=== PATIENT | male | born 1960 | race African-American/Black ===

== ENCOUNTER 2018-12-11 05:12 | Day surgery (SDC) | payer BC, OTHER ==
[2018-12-10 11:56] VITALS: BMI 24.9
--- NOTE | 2018-12-11 09:28 | HP ---
[facility] - Past Medical History Allergies/Adverse Reactions: Allergies Allergy/AdvReac Type Severity Reaction Status Date / Time CHLORQUINE Allergy Severe SEVERE Uncoded 12/10/18 11:58 ITCHING - Current Medications Current Medications: Home Medications Medication Instructions Recorded Amlodipine Besylate 5 mg PO DAILY 12/10/18 Hydrochlorothiazide [Hctz -] 12.5 mg PO DAILY 12/10/18 Ranitidine HCl [Zantac] 150 mg PO BID 12/10/18
--- NOTE | 2018-12-11 09:33 | HP ---
History & Physical Update - Physical Physical: No Change (Ventral hernia extending miway between the xiphoid and umbilicus , to below the umbilicus, with incarcerated ? fat / omentum.) - Assessment Assessment: No Change (Has ventral hernia in the midline extending aboce the umbilicus, down below the umbilicua, and would need about a 10cm. diameter mesh. Will do laparoscopic repair , for a wider placement of mesh. Patient was explained.) - Plan Plan: No Change (Plan : repair of ventral hernia with mesh. Consent obtained. Procedure explained, with risks, benefits and complications, including , seroma)
[2018-12-11] MEDS ORDERED: BUPIVACAINE HCL/PF 0.25% (2.5MG/ML) 10 ML VIAL ONE (10:33)
[2018-12-11] MEDS ORDERED: DEXAMETHASONE SOD PHOSPHATE/PF 10 MG/ML SDV ONE (10:33)
[2018-12-11] MEDS ORDERED: PROMETHAZINE HCL 25 MG/1 ML VIAL IVPB PRN (11:01)
[2018-12-11] MEDS ORDERED: oxyCODONE HCL 5 MG TABLET PO PRN (11:01)
[2018-12-11] MEDS ORDERED: ONDANSETRON 4 MG/2 ML VIAL IVPUSH PRN (11:01)
[2018-12-11] MEDS ORDERED: ACETAMINOPHEN 1000 MG/100 ML VIAL (NON FORMULARY) IVPB ONE (11:02)
[2018-12-11] MEDS ORDERED: MIDAZOLAM HCL 2 MG/2 ML SINGLE DOSE VIAL ONE ×2 (11:02)
[2018-12-11] MEDS ORDERED: BUPIVACAINE HCL/PF 0.5% (5MG/ML) 10 ML VIAL ONE (11:14)
[2018-12-11] MEDS ORDERED: LACTATED RINGERS SOLUTION 1,000 ML IV SCH (11:15)
[2018-12-11] MEDS ORDERED: PROPOFOL 20 ML ONE (12:01)
[2018-12-11] MEDS ORDERED: LIDOCAINE HCL/PF 2% SDV 5ML VIAL ONE (12:02)
[2018-12-11] MEDS ORDERED: ceFAZolin SODIUM 1 GM VIAL ONE (12:14)
[2018-12-11] MEDS ORDERED: SODIUM CHLORIDE 0.9% P/F 10 ML VIAL IJ ONE (12:14)
[2018-12-11] MEDS ORDERED: ceFAZolin SODIUM 1 GM VIAL IVPB ONE (12:15)
[2018-12-11] MEDS ORDERED: DEXAMETHASONE SOD PHOSPHATE 4 MG/1 ML VIAL ONE (12:16)
[2018-12-11] MEDS ORDERED: ePHEDrine SULFATE 50 MG/1 ML AMPULE ONE (12:39)
[2018-12-11] MEDS ORDERED: NEOSTIGMINE METHYLSULFATE 0.5 MG/ML - 10 ML MDV ONE (13:37)
[2018-12-11] MEDS ORDERED: GLYCOPYRROLATE 0.2 MG/1 ML VIAL ONE (13:37)
[2018-12-11] MEDS ORDERED: BUPIVACAINE HCL/PF (5 MG/ML) 30 ML VIAL IJ ONE (13:47)
[2018-12-11] MEDS ORDERED: KETOROLAC TROMETHAMINE 30 MG/1 ML VIAL ONE (13:56)
--- NOTE | 2018-12-11 14:26 | OP ---
Operative Note - Note: Operative Date: 12/11/18 Pre-Operative Diagnosis: Incarcerated ventral and umbilical hernia. Operation: Laparoscopic repair of incarcerated ventral and umbilical hernia with mesh. Post-Operative Diagnosis: Same as Pre-op Surgeon: Sweta Khan [employer] Professor: Sara Arnett Anesthesiologist/SALES OFFICER: Corby Constantino Anesthesia: General Specimens Removed: Incarcerated hernial contents, fat and omentum. Estimated Blood Loss (mls): 5 Operative Report Dictated: Yes
--- NOTE | 2018-12-11 14:36 | SURG ---
Surgery Bread And Pastry Baker Note Bread And Pastry Baker: Sara Arnett PA-C Date of Service: 12/11/18 Diagnosis: Incarcerated ventral and umbilical hernia. Procedure: Laparoscopic repair of incarcerated ventral and umbilical hernia with mesh. I was present for the entirety of the operative procedure. For further detail, please refer to operative report. Visit type - Case Type Case Type: Scheduled - Emergency Emergency Visit: No - New patient This patient is new to me today: Yes Date on this admission: 12/11/18
[2018-12-11] MEDS ORDERED: ACETAMINOPHEN INJECTION 100 ML IVPB ONE (14:49)
[2018-12-11 19:51] VITALS: BP 129/71; PULSE 91; TEMP 98
--- NOTE | 2018-12-12 08:58 | OP ---
DATE OF OPERATION: 12/11/2018 PREOPERATIVE DIAGNOSIS: Incarcerated ventral and umbilical hernia. POSTOPERATIVE DIAGNOSIS: Incarcerated ventral and umbilical hernia. OPERATIVE PROCEDURE: Laparoscopic repair of incarcerated ventral and umbilical hernia with Ventralex mesh. SURGEON: Paulo Khan MD C[employer]ON FORMING MACHINE OPERATOR: MOISÉS Sneed ANESTHESIA: General. ANESTHESIOLOGIST: Sudhakar Constantino MD OPERATIVE DESCRIPTION: This 58-year-old man had pain and swelling in the mid-abdomen at and above the umbilicus. Patient was found to have an incarcerated ventral hernia which was not reducible, as well as an umbilical hernia. Patient was brought in for repair of incarcerated ventral and umbilical hernia. Consent was obtained. Risks, benefits, and complications were discussed with the patient. Patient was given general anesthesia. Milton catheter was placed in the bladder, which was removed right after the surgery. The abdomen was painted and draped. Timeout was called. An incision was made in the subxiphoid area in the midline of the abdomen, which was deepened through the skin, subcutaneous tissue. The linea alba was divided in the midline, and the peritoneum was incised. Two stay sutures of 2-0 Vicryl were placed on either side to anchor the 10- to 12-mm Matt trocar into the abdominal wall. The trocar was placed into the abdominal cavity. The abdomen was inflated with carbon dioxide at 6 L/minute with maximum intraabdominal pressure of 15 mmHg. Under direct vision, two 5-mm trocars were inserted in the left side, one in the left lower quadrant of the abdomen in the flank, another in the left upper quadrant, again in the flank. Third trocar was placed in the right flank and the right lower quadrant. All these trocars were noted entering the abdominal cavity under direct vision of the camera. There was no injury to the bowel. A 30-degree camera was introduced into the abdominal cavity. There was noted to be omental fat that was incarcerated in the hernia. This was carefully reduced and brought back into the abdominal cavity. This helped us to recognize the abdominal wall defect. The reduced hernial contents were divided using the Harmonic scalpel and extracted out of the abdominal cavity and sent to Pathology. It was then determined that both the umbilical and the ventral hernia could be repaired with 1 large mesh. It was decided to use an 11.4-cm circular Ventralex mesh. Once this was done, 2 stay sutures of 2-0 Vicryl were placed on the superior and inferior end of the mesh with the sutures staying towards the surface that was going against the abdominal wall. The mesh was then folded and placed within the abdominal cavity. This was introduced through the subxiphoid port. This was placed over the bowel and omentum and unrolled. This was a mesh that had an inflatable device that could be brought through the center of the defect, allowing the mesh to stay against the abdominal wall. Once the mesh was placed, the inflatable tube was brought through the central portion of the defect. In addition, using the suture passer, the superior and inferior 2-0 Vicryl that was placed was brought out through the abdominal cavity on the superior-inferior extent about 3 cm beyond the abdominal defect. This enabled the mesh to be anchored against the anterior abdominal wall. Likewise, the inflatable device was inflated with air, maintaining the mesh against the anterior abdominal wall. A clamp was placed at the exit of the inflatable device from the skin. Once this was done, a circular layer of metallic tackers was placed at the edge of the mesh, anchoring it to the abdominal wall. In addition, another inner layer of absorbable mesh was placed to anchor the mesh to the abdominal wall. While the tackers were being placed, the abdomen was partially deflated to prevent the mesh from being folded on deflating the abdominal cavity. The mesh was adequately placed with adequate coverage circumferentially beyond the abdominal wall defect. Once this was done, the inflatable device was pulled out of the abdominal cavity through the 10-mm port. The mesh was adequately placed without any fold or any large defect between the tackers. The abdomen was then carefully deflated and noting that the mesh was adequately placed against the abdominal wall. The instruments were then withdrawn under direct vision. The linea alba in the midline was approximated with interrupted [id number] 2-0 Vicryl sutures in the subxiphoid area. Next, 0.5% Marcaine was injected into the wound. The skin was approximated using interrupted 4-0 Biosyn sutures. Dermabond was placed across the incision. Estimated blood loss was less than 5 mL. Patient tolerated the procedure well, was extubated, and sent to the recovery room in satisfactory and stable condition. An abdominal binder was placed. Darren COUGHLIN/[id number]
--- NOTE | 2018-12-15 14:13 | PATH ---
Surgical Pathology Report Patient Name: MICHELLE CLEVELAND [facility]. Rec. #: [id number] /Age/Gender: 1960 (Age: 58) / M Account: [id number] Location: [facility] SURGICAL Taken: 12/11/2018 Received: 12/14/2018 Reported: 12/15/2018 Physicians: Paulo Khan M.D. Specimen(s) Received VENTRAL/UMBILICAL HERNIA SAC CONTENTS Clinical History Ventral and umbilical incarcerated hernia Final Diagnosis VENTRAL/UMBILICAL HERNIA CONTENTS, REMOVAL: MATURE ADIPOSE TISSUE WITH FOCAL MILD CHRONIC INFLAMMATION. Electronically Signed Calra Nichols M.D. Gross Description Received in formalin labeled with "ventral and umbilical hernia contents", is an irregular portion of lobulated yellow adipose tissue measuring 5.5 x 4.0 x 1.5 cm. Serial section reveal homogeneous yellow adipose tissue , no hemorrhage or necrosis seen. Pediatric Registered Nurse sections are submitted in one cassette. WILLI/12/14/2018 miquel/12/14/2018
== END 2018-12-11 18:45 | disposition home or self-care (01) ==
LOC: JASU-SURG 05:12
PROVIDERS: ATTEND Specialist
PROC: 0WUF4JZ Supplement Abdominal Wall with Synthetic Substitute, Percutaneous Endoscopic Approach (ICD-10-PCS; principal; 2018-12-11 11:30)
DX: K43.6 Other and unspecified ventral hernia with obstruction, without gangrene (principal); K42.0 Umbilical hernia with obstruction, without gangrene
CPT/HCPCS: 88302-TC; 94760; J0131